=== PATIENT | female | born 2005 | race Caucasian/White ===

== ENCOUNTER → 2024-06-01 | Outpatient (CLI) | payer OTHER, SELFPAY ==
[2024-06-01 10:08] LABS: Basophils # (Auto) 0.1 Thou/mm3 (0.0-0.2); Basophils % (Auto) 1 % (0-2.5); Eosinophils # (Auto) 0.1 Thou/mm3 (0.0-0.5); Eosinophils % (Auto) 2 % (0-10); Hematocrit 43.1 % (36.0-46.0); Hemoglobin 13.8 g/dL (12.0-16.0); Immature Granulocytes % (Auto) 0 % (0-0); Immature Granulocytes Auto 0.01 Thou/mm3 (0.00-0.00); Lymphocytes # (Auto) 2.4 Thou/mm3 (1.0-5.0); Lymphocytes % (Auto) 40 % (10-50); Mean Corpuscular Volume 84 fL (80-100); Monocytes # (Auto) 0.5 Thou/mm3 (0.0-0.8); Monocytes % (Auto) 8 % (0-12); Neutrophils # (Auto) 2.8 Thou/mm3 (1.8-7.7); Neutrophils % (Auto) 48 % (37-80); Nucleated Red Blood Cell % 0 /100 WBC (0); Platelet Count 367 Thou/mm3 (140-440); RDW Standard Deviation 38.5 fL (36.4-46.3); Red Blood Count 5.12 Miln/mm3 (4.00-5.20); White Blood Count 5.9 Thou/mm3 (4.5-11.0)
[2024-06-01 10:16] LABS: Iron 114 mcg/dL (50-170); Total Iron Binding Capacity 361 mcg/dL (250-425); Vitamin D 25 Hydroxy Total 29.4 ng/mL (7.3-40.2)
[2024-06-01 10:20] LABS: Alanine Aminotransferase 19 U/L (10-49); Albumin, Serum 4.8 gm/dL (3.5-5.0); Albumin/Globulin Ratio 1.5 (1.2-2.2); Alkaline Phosphatase 76 U/L (46-116); Anion Gap 6 (7-16); Aspartate Amino Transferase 21 U/L (0-34); BUN/Creatinine Ratio 14 Ratio (12-20); Bilirubin,Total 0.9 mg/dL (0.3-1.2); Blood Urea Nitrogen 11 mg/dL (9-23); Carbon Dioxide 30.1 mMol/L (20.0-31.0); Cardiac Risk Estimate 2.6 RATIO (3.7-5.6); Chloride 103 mMol/L (98-107); Cholesterol 196 mg/dL (132-200); Creatinine (Component) 0.8 mg/dL (0.6-1.3); Free T4 (Free Thyroxine) 1.46 ng/dL (0.89-1.76); Globulin 3.1 gm/dL (2.3-3.5); Glucose 92 mg/dL (74-106); HDL Cholesterol 74 mg/dL (40-60); LDL Cholesterol,Calculated 110 mg/dL (0-130); Osmolality,Calculated 276 (275-295); Potassium 4.2 mMol/L (3.4-5.1); Sodium 139 mMol/L (136-145); Total Protein 7.9 gm/dL (5.7-8.2); Triglycerides 62 mg/dL (30-150); eGFR > 60 See Note
== END | disposition home or self-care (01) ==
LOC: COPL 08:35
PROVIDERS: PCP Pediatrics; Referring Provider Pediatrics; Visit Provider Pediatrics
DX: Z00.00 Encounter for general adult medical examination without abnormal findings (principal)
CPT/HCPCS: 36415; 80053; 80061; 82306; 83540; 83550; 84439; 84443; 85025

== ENCOUNTER → 2024-10-07 | Outpatient (CLI) | payer OTHER, SELFPAY ==
--- NOTE | 2024-10-07 10:34 | XR_ITS ---
Examination: Abdomen sonogram, complete Date and time of exam: October 11, 2024 1048 hours INDICATIONS: Right lower abdominal pain beginning one year ago. Technique: Multiple real-time grayscale transabdominal sonographic images of the abdomen have been obtained. Findings: Normal gallbladder. Normal common bile duct 0.3 cm Pancreatic head 1.5 cm Aorta not enlarged. Liver 14.6 cm smooth contour Normal hepatopedal portal venous flow Patent IVC Right kidney 11.1 cm cortex 1.4 cm Left kidney 10.8 cm cortex 2.1 cm Spleen 11.9 cm IMPRESSION: Negative study
--- NOTE | 2024-10-07 10:34 | XR_ITS ---
Examination: Pelvic ultrasound, transabdominal, complete Technique: Transabdominal ultrasound of the pelvis performed using grayscale imaging Date and time of exam: October 07, 2024 1039 hours INDICATIONS: Pelvic pain and vomiting episodes 2 years. FINDINGS: Uterus 6.9 cm, mild fluid in the fundal endometrium Endometrial stripe 0.6 cm No uterine mass or intrauterine gestation Right ovary 8.3 cm x 8.6 cm arterial flow, 7.6 cm simple cyst Left ovary 2.6 x 2.6 cm arterial flow mild fluid adjacent to the left ovary IMPRESSION: No uterine mass or intrauterine gestation Right ovarian simple cyst 7.1 x 5.2 x 7.6 cm
== END | disposition home or self-care (01) ==
LOC: CDIM 09:51
PROVIDERS: PCP Pediatrics; Referring Provider Pediatrics; Visit Provider Pediatrics
DX: N83.291 Other ovarian cyst, right side (principal); R10.0 Acute abdomen
CPT/HCPCS: 76700; 76856

== ENCOUNTER → 2024-10-13 | Outpatient (CLI) | payer OTHER, SELFPAY ==
[2024-10-13 11:11] LABS: Collection Type, Urine Clean Catch
[2024-10-13 11:38] LABS: Basophils # (Auto) 0.1 Thou/mm3 (0.0-0.2); Basophils % (Auto) 1 % (0-2.5); Eosinophils # (Auto) 0.1 Thou/mm3 (0.0-0.5); Eosinophils % (Auto) 2 % (0-10); Hematocrit 41.5 % (36.0-46.0); Hemoglobin 13.3 g/dL (12.0-16.0); Immature Granulocytes Auto 0.01 Thou/mm3 (0.00-0.00); Lymphocytes # (Auto) 2.6 Thou/mm3 (1.0-4.8); Lymphocytes % (Auto) 40 % (10-50); Mean Corpuscular HGB Conc 32.0 g/dl (31.0-37.0); Mean Corpuscular Hemoglobin 27.5 pg (25.0-35.0); Mean Corpuscular Volume 86 fL (80-100); Monocytes # (Auto) 0.6 Thou/mm3 (0.0-0.8); Monocytes % (Auto) 9 % (0-12); Neutrophils # (Auto) 3.1 Thou/mm3 (1.8-7.7); Neutrophils % (Auto) 48 % (37-80); Nucleated Red Blood Cell # 0.00 Thou/mm3 (0.00-0.00); Nucleated Red Blood Cell % 0 /100 WBC (0); Platelet Count 354 Thou/mm3 (140-440); RDW Standard Deviation 38.5 fL (36.4-46.3); Red Blood Count 4.83 Miln/mm3 (4.00-5.20); White Blood Count 6.5 Thou/mm3 (4.5-11.0)
[2024-10-13 11:46] LABS: Glucose Estimated Average 105 mg/dL (80-131); Hemoglobin A1C 5.3 % Hgb (4.8-6.0)
[2024-10-13 11:53] LABS: Iron 116 mcg/dL (50-170); Total Iron Binding Capacity 319 mcg/dL (250-425); Vitamin D 25 Hydroxy Total 23.9 ng/mL (7.3-40.2)
[2024-10-13 11:55] LABS: Alanine Aminotransferase 12 U/L (10-49); Albumin, Serum 4.7 gm/dL (3.5-5.0); Albumin/Globulin Ratio 1.7 (1.2-2.2); Alkaline Phosphatase 71 U/L (46-116); Anion Gap 6 (7-16); Aspartate Amino Transferase 18 U/L (0-34); BUN/Creatinine Ratio 12 Ratio (12-20); Bilirubin,Total 0.7 mg/dL (0.3-1.2); Blood Urea Nitrogen 11 mg/dL (9-23); Calcium 10.1 mg/dL (8.3-10.6); Calcium (Corrected) 10.1 mg/dL (8.5-10.1); Carbon Dioxide 28.2 mMol/L (20.0-31.0); Cardiac Risk Estimate 3.0 RATIO (3.7-5.6); Chloride 103 mMol/L (98-107); Cholesterol 184 mg/dL (132-200); Creatinine (Component) 0.9 mg/dL (0.6-1.3); Free T4 (Free Thyroxine) 1.29 ng/dL (0.89-1.76); Globulin 2.7 gm/dL (2.3-3.5); Glucose 93 mg/dL (74-106); HDL Cholesterol 62 mg/dL (40-60); LDL Cholesterol,Calculated 105 mg/dL (0-130); Osmolality,Calculated 273 (275-295); Potassium 4.1 mMol/L (3.4-5.1); Sodium 137 mMol/L (136-145); Thyroid Stimulating Hormone 1.68 uIU/mL (0.55-4.78); Total Protein 7.4 gm/dL (5.7-8.2); Triglycerides 85 mg/dL (30-150); eGFR > 60 See Note
[2024-10-13 12:12] LABS: Bilirubin,Urine Negative (Negative); Blood,Urine Negative (Negative); Clarity,Urine Clear (Clear/Hazy); Color,Urine Lt-Yellow (Lt Yel-Yel); Glucose, Urine Negative (Negative); Ketones,Urine Negative (Negative); Leukocyte Esterase,Urine Positive (Negative); Nitrite,Urine Negative (Negative); PH,Urine 6.5 (5.0-7.0); Protein,Urine Negative (Neg - Trace); RBC,Urine 1 /hpf (0-3); Specific Gravity,Urine 1.015 (1.001-1.035); Squamous Epithelial Cell,Urine 7 /hpf (0-5); Urobilinogen,Urine Negative mg/dL (0.0-1.0); WBC,Urine 5 /hpf (0-5)
== END | disposition home or self-care (01) ==
LOC: COPL 10:20
PROVIDERS: PCP Pediatrics; Referring Provider Pediatrics; Visit Provider Pediatrics
DX: Z00.00 Encounter for general adult medical examination without abnormal findings (principal)
CPT/HCPCS: 36415; 80053; 80061; 81001; 82306; 83036; 83540; 83550; 84439; 84443; 85025

== ENCOUNTER → 2025-01-31 | Outpatient (CLI) | payer OTHER, SELFPAY ==
[2025-01-31 08:16] LABS: Misc Send Out* See Sep Rpt
[2025-02-02 13:51] LABS: Cardiolipin Ab (IgA) <2.0 APL-U/mL; Cardiolipin Ab (IgG) <2.0 GPL-U/mL
[2025-02-03 07:02] LABS: B2-Glycoprotein I Ab IgA <2.0 U/mL; B2-Glycoprotein I Ab IgG <2.0 U/mL; B2-Glycoprotein I Ab IgM <2.0 U/mL; Cardiolipin Ab (IgM) <2.0 MPL-U/mL; Factor V Leiden Mutation NEGATIVE; Homocysteine* 9.9 umol/L (< OR = 10.9)
[2025-02-04 06:21] LABS: Protein C Activity* 93 % normal (70-180); Protein C Antigen, Total* 86 % normal (70-140); Protein S Activity* 72 % normal (60-140); Protein S Antigen, Total* 99 % normal (70-140)
[2025-02-04 06:22] LABS: PTT-LA Screen 31 seconds (< OR = 40); dRVVT Screen 31 seconds (< OR = 45)
== END | disposition home or self-care (01) ==
LOC: COPL 07:35
PROVIDERS: PCP Pediatrics; Referring Provider Specialist; Visit Provider Specialist
DX: Z83.2 Family history of diseases of the blood and blood-forming organs and certain disorders involving the immune mechanism (principal)
CPT/HCPCS: 36415; 81240; 81241; 83090; 85300; 85302; 85303; 85305; 85306; 85613; 85730; 86146; 86147